=== PATIENT | male | born 1950 | race Caucasian/White ===

== ENCOUNTER 2023-03-28 09:50 | Outpatient (CLI) | payer OTHER, MEDICARE, SELFPAY | END 2023-03-28 09:51 | disposition home or self-care (01) | LOC: NFLDREF 03-29 11:16 | PROVIDERS: PCP Physician Assistant Medical; Referring Provider Physician Assistant Medical; Visit Provider Physician Assistant Medical | DX: E78.5 Hyperlipidemia, unspecified (principal); I10 Essential (primary) hypertension; I50.20 Unspecified systolic (congestive) heart failure; Z12.5 Encounter for screening for malignant neoplasm of prostate | CPT/HCPCS: 80053; 80061; 84153 ==

== ENCOUNTER 2023-05-22 14:51 | Emergency (ER) | payer MEDICARE, SELFPAY ==
[2023-05-22] VITALS (28 sets, daily range): BP systolic 69–138; BP diastolic 45–104; PULSE 66–125; RESP 14–32; TEMP 36.3–37.7; O2SAT 90–98; BMI 38.3
--- NOTE | 2023-05-22 15:33 | ED.SOB ---
HPI - SOB/Dyspnea General Time Seen by Provider: 15:33 Date Seen: 05/22/23 Chief Complaint: Shortness of Breath/Dyspnea Stated Complaint: Short of breath Time Seen by Provider: 05/22/23 15:13 Source: patient and RN notes reviewed Mode of arrival: ambulatory Limitations: no limitations History of Present Illness HPI Narrative: This 72-year-old male is coming in with rapidly progressive symptoms basically over 8 hours today. He flew home from [place] where he was visiting a grandchild yesterday. He started with these symptoms 8 hours ago, is coughing, has body aches, is feeling significantly short of breath. His cough has been productive overnight. Nursing staff noted him to be tachypneic in triage. He has never been a smoker, denies any history of any pulmonary diseases or diagnoses, denies any COPD, emphysema, asthma. He does have atrial fibrillation and is on Xarelto. He had a cardiac stent placed about 3 years ago, denies any chest pain at this time. With the stent placement he states he had a stroke. MD elicited complaint: shortness of breath Related Data Home oxygen amount: none Home Medications Medication Instructions Recorded Confirmed ascorbic acid (vitamin C) 500 mg 500 mg PO DAILY 11/08/21 03/28/23 tablet cholecalciferol (vitamin D3) 10 400 unit PO DAILY 11/08/21 03/28/23 mcg (400 unit) capsule furosemide 20 mg tablet 20 mg PO .Daily as needed PRN 11/08/21 03/28/23 melatonin 5 mg capsule 5 mg PO .Bedtime as needed PRN 11/08/21 03/28/23 omega-3 fatty acids 500 mg capsule 500 mg PO QDAY 11/08/21 03/28/23 sacubitril 24 mg-valsartan 26 mg 1 tab PO BID 08/22/22 03/28/23 tablet (Entresto) empagliflozin 10 mg tablet 10 mg PO DAILY 03/28/23 03/28/23 (Jardiance) Previous Rx's Medication Instructions Recorded rivaroxaban 20 mg tablet 20 mg PO DAILY #90 tabs 11/14/22 sildenafil (pulm.hypertension) 20 60 mg (3 x 20 mg) PO ONCE PRN 04/06/23 mg tablet sexual activity #90 tabs metoprolol succinate 25 mg 25 mg PO DAILY #90 tabs 04/24/23 tablet,extended release 24 hr Allergies Allergy/AdvReac Type Severity Reaction Status Date / Time seasonal pollen Allergy Mild congestion Uncoded 03/28/23 09:41 Erythromycin AdvReac Intermediate Diarrhea Uncoded 03/28/23 09:41 [facility] Medical History History of prostatitis ?Z87.438 - Personal history of other diseases of male genital organs (ICD-10) Surgical History History of cataract extraction with lens replacement Quadriceps tendon rupture ?S76.119A - Strain of unspecified quadriceps muscle, fascia and tendon, initial encounter (ICD-10) History of heart surgery ?Z98.890 - Other specified postprocedural states (ICD-10) History of colonoscopy ?Z98.890 - Other specified postprocedural states (ICD-10) Family History Family/Other Cancer Social History Narrative: Alcohol abuse Smoking Status: Never smoker Exam Const: Vital Signs, click to edit/add: Vital Signs - 24 hr 05/22/23 14:56 05/22/23 15:14 05/22/23 15:15 Temperature 98.5 F Pulse Rate 77 95 Pulse Rate [Pulse Oximeter] 106 H Respiratory Rate 32 H Blood Pressure Blood Pressure [Ri ght Upper Arm] 138/94 H Pulse Oximetry 92 91 91 Oxygen Delivery Me thod Room Air Oxygen Flow Rate 05/22/23 15:30 05/22/23 15:39 05/22/23 15:45 Temperature Pulse Rate 103 H 107 H Pulse Rate [Pulse Oximeter] Respiratory Rate Blood Pressure Blood Pressure [Ri ght Upper Arm] Pulse Oximetry 92 94 91 Oxygen Delivery Me thod Oxygen Flow Rate 05/22/23 15:53 05/22/23 16:00 05/22/23 16:14 Temperature 100 F H Pulse Rate 102 H Pulse Rate [Pulse Oximeter] Respiratory Rate Blood Pressure 109/75 Blood Pressure [Ri ght Upper Arm] Pulse Oximetry 95 97 Oxygen Delivery Me thod Oxygen Flow Rate 05/22/23 16:15 05/22/23 16:22 05/22/23 16:32 Temperature Pulse Rate 94 114 H 112 H Pulse Rate [Pulse Oximeter] Respiratory Rate Blood Pressure 123/104 H Blood Pressure [Ri ght Upper Arm] Pulse Oximetry 98 97 97 Oxygen Delivery Me thod Oxygen Flow Rate 05/22/23 16:42 05/22/23 16:45 05/22/23 16:48 Temperature Pulse Rate 102 H 76 Pulse Rate [Pulse Oximeter] Respiratory Rate Blood Pressure 97/78 Blood Pressure [Ri ght Upper Arm] Pulse Oximetry 94 93 93 Oxygen Delivery Me thod Nasal Cannula Oxygen Flow Rate 2 05/22/23 16:49 05/22/23 16:55 05/22/23 17:00 Temperature Pulse Rate 90 Pulse Rate [Pulse Oximeter] 120 H Respiratory Rate 22 Blood Pressure Blood Pressure [Ri ght Upper Arm] Pulse Oximetry 90 95 Oxygen Delivery Me thod Room Air Oxygen Flow Rate 05/22/23 17:02 05/22/23 17:06 05/22/23 17:15 Temperature Pulse Rate 85 97 76 Pulse Rate [Pulse Oximeter] Respiratory Rate Blood Pressure 69/45 L 106/93 H Blood Pressure [Ri ght Upper Arm] Pulse Oximetry 94 94 93 Oxygen Delivery Me thod Oxygen Flow Rate 05/22/23 17:23 05/22/23 17:43 05/22/23 17:44 Temperature Pulse Rate 77 87 79 Pulse Rate [Pulse Oximeter] Respiratory Rate Blood Pressure 128/70 108/84 Blood Pressure [Ri ght Upper Arm] Pulse Oximetry 94 94 94 Oxygen Delivery Me thod Oxygen Flow Rate 05/22/23 17:45 05/22/23 17:51 05/22/23 17:56 Temperature 97.3 F L Pulse Rate 66 Pulse Rate [Pulse Oximeter] 113 H 125 H Respiratory Rate 14 Blood Pressure Blood Pressure [Ri ght Upper Arm] 108/84 Pulse Oximetry 94 94 Oxygen Delivery Me thod Nasal Cannula Oxygen Flow Rate 2 05/22/23 18:18 Temperature 97.3 F L Pulse Rate Pulse Rate [Pulse Oximeter] Respiratory Rate Blood Pressure Blood Pressure [Ri ght Upper Arm] Pulse Oximetry Oxygen Delivery Me thod Oxygen Flow Rate This 72-year-old male is alert interactive, looks to be in mild distress. He is sitting upright, I had him moved just a little bit and then when he went to sit back down, became very tachypneic, had to sit straight up. Do hear some audible crackles just when listening to him. Sclera clear, conjugate gaze. Symmetrical facial function, cheeks are flushed, skin feels warm but is not diaphoretic. He has some crackles, some end expiratory wheezing heard throughout, the wheezing a here more on the left side. CV fast, sounds mostly regular at this point but his lung sounds are quite noisy. Do not appreciate any murmur. Abdomen is obese but soft nontender. He has no lower extremity edema. Documenting provider has reviewed patient's vital signs: yes Course Course ED Course: His O2 sats were in the 90 % range while I was in with him but he is tachypneic, feel short of breath. Nursing staff had appropriately already collected a triple swab. We are going to attempt to get a portable chest x-ray rather quickly so that I can look at it. Will have respiratory therapy come down to look at him. This certainly sounds like a infectious respiratory presentation but do need to consider CHF as well. It is doubtful that this would be thromboembolic disease given he is on Xarelto maintenance for his atrial fibrillation. With him on cardiac monitoring pulse oximetry. Do think we need to consider nebulization but would like to see is chest x-ray 1st. Will get a full complement of labs including cardiac labs. Will have nursing staff recheck his temperature, he feels warm to me. Reevaluation(s) Time of Reevaluation #1: 16:14 Reevaluation #1: Respiratory therapy provided aerobika which was helping clear some secretions, did recommended DuoNeb. Nursing staff did recheck his temperature and he was at 100? F. Did subsequently order blood cultures and some Tylenol for him. Awaiting other testing. Time of Reevaluation #2: 16:23 Reevaluation #2: Nursing staff provided EKG, he is in atrial fibrillation with RVR, rate 144 beats per minute. He told nursing staff that he cut his metoprolol down himself a few months ago due to side effects. Nursing staff does note that he is going in out of RVR. His rhythm is likely being triggered by his illness. Time of Reevaluation #3: 17:07 Reevaluation #3: Went in to talk to patient, he sitting upright on the edge of the bed. He is not feeling dizzy, not feeling lightheaded, states he feels better. Nursing staff did assess that when he was getting panicky was with movement but noted it seemed to be when his heart rate was jumping up. In triage, nursing staff stated his heart rate was going from 90-105. After movement, nursing staff noted his heart rate would be in the upper 100s, they got 180 at 1 time. On his EKG was capture to be 144. Right now he is currently bound seen between 90s to 120s. He can still hear some upper airway crackling that is being transmitted. Lungs still have crackles, improved movement. Chest x-ray is been read by Radiology with likely congestion. His blood pressure when I went in had last red with 64 systolic, was rechecked when I was in there and was 101 systolic. His white blood count is elevated, is negative on the triple swab. Do think that he likely has a community-acquired pneumonia, also has atrial fibrillation with RVR and congestive heart failure. Will try a dose of Lasix IV, will just start with 20 mg given his blood pressure. He did receive 5 mg IV metoprolol and a small fluid bolus to maintain his blood pressure. Right now he is asymptomatic. Will also talk to Cardiology. Of note, patient's states he does not feel his atrial fibrillation, he has been told that he is in an out of it when he has been a doctor's offices. He cannot tell when he is in it. Consultations Consultation #1: Spoke with cardiology on-call Dr. Montgomery from [facility]. Reviewed the case, he is accepting this patient. He did tell me that the patient's last ejection fraction was 35%. He did recommend avoidance of further beta blockers or calcium channel blockers with this lower EF. He did talk about loading with IV digoxin if the heart rate was starting to go consistently above the 1-teens level. He also did discuss BiPAP. I certainly do not feel that this patient needs BiPAP at this time, he is sitting up, stating he is feeling good. We will see how he response to 20 mg IV Lasix, will continue to monitor him quite closely. Will let patient know that he is being transferred to [facility]. Time: 17:20 Vital Signs Vital signs: Initial Vital Signs Temperature 98.5 F 05/22/23 14:56 Temperature Source Oral 05/22/23 14:56 Pulse Rate 106 H 05/22/23 14:56 Respiratory Rate 32 H 05/22/23 14:56 Blood Pressure 138/94 H 05/22/23 14:56 Blood Pressure Mean 108 H 05/22/23 14:56 Blood Pressure Position Sitting 05/22/23 14:56 Pulse Oximetry 92 05/22/23 14:56 Oxygen Delivery Method Room Air 05/22/23 14:56 Vital Signs Temperature 98.5 F 05/22/23 14:56 Pulse Rate 106 H 05/22/23 14:56 Respiratory Rate 32 H 05/22/23 14:56 Blood Pressure 138/94 H 05/22/23 14:56 Pulse Oximetry 92 05/22/23 14:56 Oxygen Delivery Method Room Air 05/22/23 14:56 Temperature 97.3 F L 05/22/23 18:18 Pulse Rate 125 H 05/22/23 17:56 Respiratory Rate 14 05/22/23 17:51 Blood Pressure 108/84 05/22/23 17:51 Pulse Oximetry 94 05/22/23 17:51 Oxygen Delivery Method Nasal Cannula 05/22/23 17:51 Oxygen Flow Rate 2 05/22/23 17:51 Medications Administered Medications: Discontinued Medications Generic Name Dose Route Start Last Admin Trade Name Belen PRN Reason Stop Dose Admin Acetaminophen 1,000 mg 05/22/23 15:55 05/22/23 16:32 Acetaminophen 500 Mg Tablet PO 05/22/23 15:56 1,000 mg ONCE ONE Administration Albuterol/Ipratropium 1 neb 05/22/23 16:13 05/22/23 16:10 Iprat-Albut 0.5-2.5 Mg/3 Ml Neb IH 05/22/23 16:14 1 neb ONCE ONE Administration Azithromycin 500 mg 05/22/23 17:00 05/22/23 17:50 Azithromycin 250 Mg Tablet PO 05/22/23 17:01 500 mg ONCE ONE Administration Furosemide 20 mg 05/22/23 17:10 05/22/23 17:50 Furosemide 10 Mg/Ml Inj IVP 05/22/23 17:11 20 mg ONCE ONE Administration Sodium Chloride 250 mls @ 250 mls/hr 05/22/23 16:33 05/22/23 17:57 0.9 % Sodium Chloride 250 Ml IV 05/22/23 17:32 Infused .Q1H ONE Infusion Ceftriaxone Sodium 2 gm/ 100 mls @ 200 mls/hr 05/22/23 17:00 05/22/23 18:21 Sodium Chloride IVPB 05/22/23 17:01 Infused ONCE ONE Infusion Metoprolol Tartrate 5 mg 05/22/23 16:33 05/22/23 16:45 Metoprolol Tartrate 1 Mg/Ml Inj IVP 05/22/23 16:34 5 mg ONCE ONE Administration MDM - SOB/Dyspnea Lab Data Attestation: I reviewed the patient's lab results. Labs: Lab Results 05/22/23 05/22/23 05/22/23 Range/Units 15:00 17:10 Unknown WBC 12.93 H (4.50-11.00) K/uL RBC 5.97 H (4.30-5.90) m/uL Hgb 17.5 (13.5-17.5) gm/dL Hct 52.3 (37.0-53.0) % MCV 88 (80-100) fL MCH 29 (26-34) pg MCHC 34 (32-36) gm/dL RDW Coeff of Trent 14.6 (11.5-15.5) % Plt Count 176 (140-440) K/uL Neut % (Auto) 86.3 H (42.0-72.0) % Lymph % (Auto) 6.4 L (20-44) % Stephens % (Auto) 6.4 (0.0-11.0) % Eos % (Auto) 0.5 (0.0-7.0) % Baso % (Auto) 0.2 (0.0-3.0) % Neut # (Auto) 11.20 H (1.7-7.0) K/uL Lymph # (Auto) 0.80 L (0.90-2.90) K/uL Stephens # (Auto) 0.80 (0.00-0.90) K/UL Eos # (Auto) 0.10 (0.00-0.50) K/uL Baso # (Auto) 0.00 (0.00-0.30) K/uL Abs Immat Gran (auto) 0.00 (0.00-0.30) K/uL Imm/Tot Granulo (auto) 0.2 % VBG pH 7.418 (7.32-7.43) VBG pCO2 44 (40-50) mmHG VBG pO2 27.4 (25-47) mmHG VBG HCO3 28 (21-28) mmol/L Sodium 139 (135-149) mmol/L Potassium 4.2 (3.6-5.1) mmol/L Chloride 103 (96-114) mmol/L Carbon Dioxide 26 (20-32) mmol/L Anion Gap 10 (7-15) mEq/L BUN 19 (7-30) mg/dL Creatinine 0.9 (0.5-1.5) mg/dL Estimated Creat Clear 77.68 Estimated GFR 92 ml/min Glucose 130 H (60-115) mg/dL Lactate 1.7 (0.5-1.9) mmol/L Calcium 9.1 (8.4-10.6) mg/dL Magnesium 2.1 (1.5-2.6) mg/dL Total Bilirubin 1.3 (0.1-1.5) mg/dL AST 32 (12-35) U/L ALT 33 (4-50) U/L Alkaline Phosphatase 58 (40-150) U/L Troponin I 0.01 (0.01-0.04) ng/mL C-Reactive Protein 3.2 H (0.5-1.0) mg/dL NT-Pro-B Natriuret Pep 1270 pg/mL Total Protein 8.5 H (6.0-8.3) g/dL Albumin 4.9 (3.3-5.0) g/dL Procalcitonin 0.05 (<0.50) ng/mL SARS-CoV-2 (PCR) Negative SARS-CoV-2 (Negative) Influenza Type A (PCR) Negative PCR FLU A (Negative) Influenza Type B (PCR) Negative PCR FLU B (Negative) RSV (PCR) Negative PCR RSV (Negative) Lab Acknowledgement Test Added Imaging Data Chest x-ray: Attestation: I have reviewed the pertinent imaging results. Radiologist's impression: Patient: LOUISE TURCIOS Facility:?[facility] Patient ID:?[id number] Site Patient ID:?[id number]. Site :?[id number] Study:?XRay Chest 1V-05/22/2023 3:59:11 PM Ordering Physician:Zahra Alcala Final Report: INDICATION: Shortness of breath, cough. TECHNIQUE: Chest 1 views. COMPARISON: None. FINDINGS: Cardiovascular and mediastinum: Prominent heart size and vasculature. Lungs and pleural spaces: Elevation of the right hemidiaphragm. Low lung volumes. No sign of infiltrate or mass. No sign of pleural effusion. No pneumothorax. Bones and soft tissues: No significant findings. IMPRESSION: Prominent heart size and vascular congestion accentuated by low lung volumes. Dictated by Farhan Boone MD @ 05/22/2023 4:58:00 PM (Electronic Signature) ECG Data Attestation: I personally reviewed and interpreted this ECG as follows: (Atrial fibrillation with RVR, 144 beats per minute. Left axis deviation. Q-waves inferiorly and anterior leads without any concomitant acute ST segment changes.) ECG interpretation date: 05/22/23 ECG interpretation time: 16:20 Prior ECG tracings: available for review (Compared to EKG from March of 2022, Q-wave changes as noted above were there on this EKG, was atrial fibrillation rate controlled at 80 beats per minute.) Discharge Plan Discharge Clinical Impression: Atrial fibrillation with rapid ventricular response Community acquired pneumonia Qualifiers: Laterality: unspecified laterality Qualified Code(s): J18.9 - Pneumonia, unspecified organism Congestive heart failure Qualifiers: Heart failure type: unspecified Heart failure chronicity: acute on chronic Qualified Code(s): I50.9 - Heart failure, unspecified Patient Disposition: Xfer [facility] Discharge Location: [facility] Prescriptions: No Action Entresto 24-26 mg tablet 1 tab PO BID furosemide 20 mg tablet 20 mg PO .Daily as needed PRN cholecalciferol (vitamin D3) 10 mcg (400 unit) capsule 400 unit PO DAILY ascorbic acid (vitamin C) 500 mg tablet 500 mg PO DAILY omega-3 fatty acids 500 mg capsule 500 mg PO QDAY melatonin 5 mg capsule 5 mg PO .Bedtime as needed PRN Jardiance 10 mg tablet 10 mg PO DAILY rivaroxaban 20 mg tablet 20 mg PO DAILY Qty: 90 3RF Rx Instructions: WITH MEAL sildenafil (pulm.hypertension) 20 mg tablet 60 mg PO ONCE PRN (Reason: sexual activity) Qty: 90 1RF metoprolol succinate 25 mg tablet extended release 24 hr 25 mg PO DAILY Qty: 90 3RF Stand Alone Forms: [employer] Info Instructions
--- NOTE | 2023-05-22 15:39 | CRLHL7_ITS ---
For Patients: As a result of the Century Cures Act, medical imaging exams and procedure reports are released immediately into your electronic medical record. You may view this report before your referring provider. If you have questions, please contact your health care provider. INDICATION: Shortness of breath, cough. TECHNIQUE: Chest 1 views. COMPARISON: None. FINDINGS: Cardiovascular and mediastinum: Prominent heart size and vasculature. Lungs and pleural spaces: Elevation of the right hemidiaphragm. Low lung volumes. No sign of infiltrate or mass. No sign of pleural effusion. No pneumothorax. Bones and soft tissues: No significant findings. IMPRESSION: Prominent heart size and vascular congestion accentuated by low lung volumes. Dictated by Farhan Boone MD @ 05/22/2023 4:58:00 PM (Electronically Signed)
[2023-05-22 15:58] LABS: PCR FLU A Negative PCR FLU A (Negative); PCR FLU B Negative PCR FLU B (Negative); PCR RSV Negative PCR RSV (Negative); SARS PCR* Negative SARS-CoV-2 (Negative)
[2023-05-22] MEDS: IPRAT-ALBUT 0.5-2.5 MG/3 ML NEB 1 NEB IH (16:10)
[2023-05-22 16:21] LABS: HCO3 VBG 28 mmol/L (21-28); Lactate* 1.7 mmol/L (0.5-1.9); PCO2 VBG 44 mmHG (40-50); PO2 VBG 27.4 mmHG (25-47); pH VBG 7.418 (7.32-7.43)
[2023-05-22 16:23] LABS: Red Blood Count 5.97 m/uL (4.30-5.90); White Blood Count* 12.93 K/uL (4.50-11.00)
[2023-05-22 16:24] LABS: Basophils Percent Auto 0.2 % (0.0-3.0); Eosinophils Percent Auto 0.5 % (0.0-7.0); Hematocrit 52.3 % (37.0-53.0); Hemoglobin* 17.5 gm/dL (13.5-17.5); Immature Granulocytes Pct Auto 0.2 %; Lymphocytes Percent Auto 6.4 % (20-44); Mean Corpuscular HGB Conc 34 gm/dL (32-36); Mean Corpuscular Hemoglobin 29 pg (26-34); Mean Corpuscular Volume 88 fL (80-100); Monocytes Percent Auto 6.4 % (0.0-11.0); Neutrophils Percent Auto 86.3 % (42.0-72.0); Platelet Count* 176 K/uL (140-440); RDW Coefficient of Variation % 14.6 % (11.5-15.5)
[2023-05-22 16:30] LABS: Slide Review Reflex No
--- NOTE | 2023-05-22 16:30 | ED.NURSE ---
Following placement of media monitor patient noted to be in a-fib with rates 120-180's. He denies palpitations or chest pain. MD updated.
[2023-05-22] MEDS: ACETAMINOPHEN 500 MG TABLET 1000 MG PO (16:32)
[2023-05-22 16:39] LABS: Albumin* 4.9 g/dL (3.3-5.0); Chloride* 103 mmol/L (96-114); Sodium* 139 mmol/L (135-149)
[2023-05-22 16:40] LABS: Potassium* 4.2 mmol/L (3.6-5.1)
[2023-05-22 16:41] LABS: Bilirubin Total* 1.3 mg/dL (0.1-1.5); Creatinine* 0.9 mg/dL (0.5-1.5); Est. Creatinine Clearance* 77.68; Estimated Glomerular Filt Rate 92 ml/min
[2023-05-22 16:42] LABS: Alanine Aminotransferase* 33 U/L (4-50); Alkaline Phosphatase* 58 U/L (40-150); Anion Gap 10 mEq/L (7-15); Aspartate Amino Transferase* 32 U/L (12-35); Blood Urea Nitrogen* 19 mg/dL (7-30); Carbon Dioxide* 26 mmol/L (20-32); Total Protein* 8.5 g/dL (6.0-8.3)
[2023-05-22 16:43] LABS: Calcium* 9.1 mg/dL (8.4-10.6); Glucose* 130 mg/dL (60-115)
[2023-05-22 16:45] LABS: C Reactive Protein* 3.2 mg/dL (0.5-1.0)
[2023-05-22] MEDS: METOPROLOL TARTRATE 1 MG/ML inj 5 MG IVP (16:45)
[2023-05-22] MEDS: 0.9 % SODIUM CHLORIDE 250 ml 250 ML IV (16:45)
--- NOTE | 2023-05-22 16:53 | RESP.RT ---
Patient sitting up in bed, working to breath. BBS with coarse breath sounds all rodriguez, upper airway coarse air movement. Good loose coarse, wet Non-productive cough. PEP with Aerobika, patient use well, promoted nonproductive cough, good chest shake. DuoNeb given with on-demand nebulizer with mouth piece, and Oxygen flow meter at 6 Lpm. Patient used well. Post treatments BBS with good air movement, and loud expiratory wheeze. Patient states easy to breath, able to produce larger breath.
[2023-05-22 16:55] LABS: Troponin I* 0.01 ng/mL (0.01-0.04)
[2023-05-22 16:59] LABS: Procalcitonin* 0.05 ng/mL (<0.50)
[2023-05-22 17:01] LABS: NT Pro B Type NatriureticPept* 1270 pg/mL
[2023-05-22 17:21] LABS: Magnesium* 2.1 mg/dL (1.5-2.6)
[2023-05-22] MEDS: cefTRIAXone 2 GM in 0.9 % SODIUM CHLORIDE Mini-bag 100 ML IVPB (17:50)
[2023-05-22] MEDS: FUROSEMIDE 10 MG/ML inj 20 MG IVP (17:50)
[2023-05-22] MEDS: AZITHROMYCIN 250 MG TABLET 500 MG PO (17:50)
--- NOTE | 2023-05-22 18:13 | ED.NURSE ---
Patient being transported via [facility] to [facility].
== END 2023-05-22 18:29 | disposition short-term general hospital (02) ==
PROVIDERS: Emergency Provider Family Medicine; PCP Physician Assistant Medical
DX: I48.91 Unspecified atrial fibrillation (principal); J18.9 Pneumonia, unspecified organism; I50.9 Heart failure, unspecified
CPT/HCPCS: 36415; 71045; 80053; 82803; 83605; 83735; 83880; 84145; 84484; 85025; 86140; 87040; 87631; 93005; 94640; 94664; 94761; 96365; 96375; 99285; A9270; J0696; J1940; J7050

== ENCOUNTER 2023-05-22 18:08 | Outpatient (CLI) | payer MEDICARE, SELFPAY | END 2023-05-22 18:09 | disposition home or self-care (01) | LOC: AMB 05-25 10:40 | PROVIDERS: PCP Physician Assistant Medical; Visit Provider Family Medicine | DX: J18.9 Pneumonia, unspecified organism (principal); I50.9 Heart failure, unspecified | CPT/HCPCS: A0425; A0427 ==

== ENCOUNTER 2024-09-11 08:18 | Outpatient (CLI) | payer MEDICARE, SELFPAY | END 2024-09-11 08:19 | disposition home or self-care (01) | LOC: NFLDREF 09-14 20:49 | PROVIDERS: PCP Physician Assistant Medical; Referring Provider Physician Assistant Medical; Visit Provider Physician Assistant Medical | DX: Z12.5 Encounter for screening for malignant neoplasm of prostate (principal); N52.9 Male erectile dysfunction, unspecified; R53.83 Other fatigue | CPT/HCPCS: 84403; G0103 ==